=== PATIENT | male | born 1930 | race Caucasian/White ===

== ENCOUNTER 2017-07-29 23:14 | Emergency (ER) | payer BC ==
[2017-07-29 23:55] LABS: #Basophils 0.1 thou/uL (0.0-0.2); #Eosinphils 0.1 thou/uL (0.0-0.7); #Lymphocytes 1.5 thou/uL (1.20-3.40); #Monocytes 0.7 thou/uL (0.11-0.59); #Neutrophils 5.2 thou/uL (1.40-6.50); %Basophils 0.7 % (0.0-1.0); %Eosinophils 1.8 % (0.0-10.0); %Lymphocytes 20.3 % (21.0-51.0); %Monocytes 9.1 % (0.0-10.0); %Neutrophils 68.1 % (42.0-75.0); Hemoglobin 14.3 g/dL (14.0-18.0); Mean Corpuscular HGB CONC 32.4 g/dL (32.0-36.0); Mean Corpuscular Hemoglobin 31.7 pg (27.0-31.0); Mean Corpuscular Volume 97.8 fl (80.0-94.0); Platelet Count 259 thou/uL (130-400); RBC Distribution Width 12.3 % (11.5-14.5); Red Blood Cell (RBC) Count 4.51 mill/uL (4.70-6.10); White Blood Cell (WBC) Count 7.6 thou/uL (4.8-10.8)
[2017-07-29 23:55] LABS: Bilirubin Negative (Negative); Blood, Urine Moderate (Negative); Glucose, Urine (Dipstick) Negative (Negative); Leukocyte Negative (Negative); Nitrite Negative (Negative); Protein, Urine (Dipstick) Trace mg/dL (Neg-Trace); Urobilinogen 0.2 mg/dL (0.2-1.0); pH, Urine 5.5 (5.0-9.0)
[2017-07-29 23:56] LABS: PTT 29.9 SEC (22.9-36.1); Prothrombin Time 13.5 SEC (12.0-14.7)
[2017-07-29 23:59] LABS: Specific Gravity, Urine 1.026 (1.002-1.036)
[2017-07-30 00:06] LABS: Clarity Hazy (Clear)
[2017-07-30 00:07] LABS: RBC/HPF 21-50 HPF (0-3); Squamous Epithelial 0-3 HPF (0-3); WBC/HPF None Seen HPF (0-3)
[2017-07-30 00:07] LABS: ALT (SGPT) 22 U/L (8-55); AST (SGOT) 36 U/L (5-34); Albumin 4.2 g/dL (3.4-4.8); Alkaline Phosphatase 114 U/L (40-150); Anion Gap 14 mmol/L (10-20); BUN (Urea Nitrogen) 30 mg/dL (8.4-25.7); Bilirubin, Total 0.5 mg/dL (0.2-1.2); Calc. Creatinine Clearance 0 mL/min (70-130); Calcium 9.5 mg/dL (7.8-10.44); Carbon Dioxide 22 mmol/L (23-31); Chloride 106 mmol/L (98-107); Estimated GFR-MDRD 52; Globulin 2.8 g/dL (2.4-3.5); Glucose 154 mg/dL (83-110); Lipase 54 U/L (8-78); Potassium 3.8 mmol/L (3.5-5.1); Sodium 138 mmol/L (136-145)
[2017-07-30 00:08] LABS: Crystals/HPF 1+ AMORPH URATES HPF (Negative); Other Microscopic Description 1+ MUCUS
[2017-07-30] MEDS ORDERED: Ketorolac Tromethamine 30 MG/ML VIAL ONE (00:25)
--- NOTE | 2017-07-30 07:39 | CT ---
PRELIMINARY REPORT/[facility]/EMERGENCY AFTER HOURS PROCEDURE: EXAM: CT Abdomen and Pelvis Without Intravenous Contrast EXAM DATE/TIME: Exam ordered 07/30/2017 12:33 AM CLINICAL HISTORY: 87 years old, male; Pain; Other: Rt groin; Patient HX: Pt presents to the er for rt groin pain; Bega n at 1800 yesterday. Pt states pain in the right lower quadrant, to the right flank is "off and on". TECHNIQUE: Axial computed tomography images of the abdomen and pelvis without intravenous contrast. All CT scan s at this facility use one or more dose reduction techniques, viz.: automated exposure control; ma/k V adjustment per patient size (including targeted exams where dose is matched to indication; i.e. he ad); or iterative reconstruction technique. Coronal reformatted images were created and reviewed. COMPARISON: No relevant prior studies available. FINDINGS: Lower thorax: There is subpleural atelectasis of the dependent portions of the lungs. ABDOMEN: Liver: There are no focal liver lesions present. Gallbladder and bile ducts: The gallbladder is normal. There is no evidence of biliary ductal dilati on. No calcified stones. Pancreas: The pancreas is normal. No ductal dilation. Spleen: The spleen is normal. Adrenals: The adrenal glands are normal. Kidneys and ureters: There is a 5 x 5 x 7 mm proximal RIGHT ureteral obstructing calculus with assoc iated mild RIGHT hydronephrosis and perinephric stranding. The left kidney is normal. Stomach and bowel: The colon is normal. There is no evidence of intestinal perforation or obstructio n. No mucosal thickening. Appendix: A normal appendix is identified. PELVIS: Bladder: The bladder is normal. No stones. Reproductive: The prostate gland and seminal vesicles are normal. ABDOMEN and PELVIS: Intraperitoneal space: Normal. No free air. No significant fluid collection. Bones/joints: No acute fracture. No dislocation. Soft tissues: Normal. Vasculature: The vasculature demonstrates diffuse mild atherosclerotic calcification. No abdominal a ortic aneurysm. Lymph nodes: Normal. No enlarged lymph nodes. IMPRESSION: There is a 5 x 5 x 7 mm proximal RIGHT ureteral obstructing calculus with associated mild RIGHT hydr onephrosis and perinephric stranding. Thank you for allowing us to participate in the care of your patient. Dictated and Authenticated by: Rocky Ivan MD 07/30/2017 1:16 AM Central Time ([place] \\T\\ [place]) FINAL REPORT CT ABDOMEN AND PELVIS WITHOUT CONTRAST 07/30/[address] of the abdomen and pelvis was performed for evaluation of right lower quadrant and right f lank pain. Axial slices were acquired and then coronal reconstructions were done. There is a large 7 mm calculus in the proximal right ureter just after the UPJ causing moderate righ t hydronephrosis. No other renal calculi were seen on either side. The remainder of the scan was generally unremarkable. The lung bases show dependent atelectasis and perhaps some scarring. There are no effusions. A small hiatal hernia is present. The liver, sple en, pancreas, gallbladder, adrenal glands, and abdominal aorta were unremarkable within the limitati ons of a noncontrast study. Arteriosclerotic change in the aorta is relatively light given the quang ent's age. The bowel is nondistended. The appendix appears normal. There are no inflammatory changes around b owel. No free air or free fluid was seen. CT of the pelvis shows no mass, free fluid, or inflammatory change. Extensive degenerative changes are seen in the lumbar spine, particularly the lower lumbar spine. IMPRESSION: 1. A 7 mm proximal right ureteral calculus causing moderate right hydronephrosis. 2. Other minor findings as listed above. Report in agreement with preliminary reading by [facility]. POS: HOME
== END 2017-07-30 02:13 | disposition home or self-care (01) ==
LOC: BURERS 23:14
DX: N13.2 Hydronephrosis with renal and ureteral calculous obstruction (principal); I10 Essential (primary) hypertension; E78.00 Pure hypercholesterolemia, unspecified; I63.9 Cerebral infarction, unspecified; Z79.899 Other long term (current) drug therapy
CPT/HCPCS: 74176; 80053; 81003; 81015; 83690; 85025; 85610; 85730; 96374; J1885